=== PATIENT | female | born 1985 | race Native Hawaiian/Other Pacific Islander ===

== ENCOUNTER 2017-08-15 | Inpatient (IN) | payer BC, OTHER ==
[2017-08-15 01:10] VITALS: BMI 28.3
[2017-08-15] MEDS ORDERED: Penicillin G Potassium 5 MU in Sodium Chloride 0.9% 50 ML IVPB ONE (01:14)
[2017-08-15] MEDS ORDERED: Oxytocin 30 units/LR 500ML 30 U/500 ML BAG IV SCH (01:15)
[2017-08-15] MEDS ORDERED: Penicillin G 5 Million Unit Vial IVPB ONE (02:12)
[2017-08-15] MEDS: Lactated Ringer's 1,000 ML IV SCH ×4 (02:15→12:00)
[2017-08-15 02:27] VITALS: O2SAT 98
[2017-08-15 02:38] LABS: BASO # 0.1 K/uL (0.0-0.2); BASO % 0.7 % (0.0-2.0); EOS # 0.1 K/uL (0.0-0.7); EOS % 1.2 % (0.0-4.0); HEMOGLOBIN 11.9 g/dL (12.0-16.0); LYMPH # 1.6 K/uL (1.0-4.3); LYMPH % 22.1 % (20.0-40.0); MEAN CELL VOLUME 87.2 fl (81.0-99.0); MEAN CORPUSCULAR HEMOGLOBIN 29.7 pg (27.0-31.0); MEAN CORPUSCULAR HGB CONC 34.1 g/dL (33.0-37.0); MONO # 0.5 K/uL (0.0-0.8); MONO % 6.8 % (0.0-10.0); NEUT % 69.2 % (50.0-75.0); WHITE BLOOD COUNT 7.2 K/uL (4.8-10.8)
[2017-08-15] MEDS ORDERED: Oxytocin 30 units/LR 500ML 30 U/500 ML BAG IV ONE (06:47)
[2017-08-15] MEDS ORDERED: Oxytocin 30 units/LR 500ML 30 UNITS/500 ML BAG IV ONE (06:56)
--- NOTE | 2017-08-15 09:38 | OBPN ---
Datetime: 08/15/2017 09:29 IP Progress Impression: Normal progression of labor IP Informed Consent Obtain: Vaginal Delivery IP Procedures: Sterile Vag Exam IP Progress Plan: Continue present management Contraction Comments Provider: q 3-4 mins FHR - Baseline A Provider: 140 IP Progress Note Comment: Patient evaluated, comfortable using nitrous VE=3/60/-1 [id number] mod trey, +accels, no decels TOCO=q 3-4 mins A/P 1. Patient comfortable, continue Pitocin for augmentation, currently at 6 mu/min 2. CEFM and TOCO 3. Re-evaluate as needed, pt can have medicine for pain other than nitrous Vital Signs Provider: Reviewed; Within Normal Limits NICHD Accel Fetus A IP Provider: [id number] NICHD Variability Prov Fetus A: Moderate 6-25bpm Dilatation, Provider: 3 Effacement, Provider: 60 Station, Provider: -2 NICHD Decel Fetus A IP Provider: None Datetime: 08/15/2017 02:48 Pool Provider: Positive Nitrazine Provider: Positive Membranes, Provider: Ruptured Amniotic Fluid Color, Provider: Bloody FHR Category Provider Fetus A: Category I
[2017-08-15] MEDS ORDERED: Bupivacaine HCl 0.25% PF (10 ml) Inj ONE (12:22)
[2017-08-15] MEDS ORDERED: Fentanyl/Bupivacaine HCl 250 ML EPI ONE (12:22)
--- NOTE | 2017-08-15 23:30 | OBDS ---
DELIVERY PERSONNEL Delivery Doctor: Edvin Mcmahan MD Recycling Attendant: Claudette Rios RN Anesthesiologist: Tarsha Pérez MD MATERNAL INFORMATION Delivery Anesthesia: Epidural Medications in Delivery: pitocin and Pen G Provider Comments: of live male over intact perineum in JULIETA presentation, 6lbs 14 oz, 9/ 9, followed by shoulders and rest of infant, placed on mother's chest, mouth and nose suctione d, cord clamped and cut, cord blood obtained, placenta delivered spontaneously, fundus firm, ULP=841p L, vaginal abrasion repaired with 3-0 rapide LABOR SUMMARY EDC: 08/13/2017 00:00 No. Babies in Womb: 1 Attempted: No Labor Anesthesia: Epidural LABOR INFORMATION Reason for Induction: Not Applicable Oxytocin: Augmentation Group B Beta Strep: Positive Steroids Given: None Reason Steroids Not Administered: Not Applicable MEMBRANES Membranes Rupture Method: Spontaneous Rupture of Membranes: 08/14/2017 23:20 Length of Rupture (hrs): 17.67 Amniotic Fluid Color: blood tinge Amniotic Fluid Amount: Moderate Amniotic Fluid Odor: None BABY A INFORMATION Delivery Date/Time: 08/15/2017 17:00 Born in Route : No : N/A SHOULDER DYSTOCIA BABY A Infant Delivery Date/Time: 08/15/2017 17:00 INFORMATION BABY A Gestational Age at Delivery: 40.2 Gestational Status: Term IDENTIFICATION/MEDS BABY A ID Band Number: [id number]
[2017-08-15] MEDS ORDERED: Benzocaine/Menthol SPRAY TOP PRN (23:39)
[2017-08-15] MEDS ORDERED: Oxycodone/Acetaminophen 5/325 mg Tab PO PRN (23:39)
[2017-08-16 06:45] LABS: HEMOGLOBIN 9.9 g/dL (12.0-16.0); MEAN CELL VOLUME 88.3 fl (81.0-99.0); MEAN CORPUSCULAR HEMOGLOBIN 29.9 pg (27.0-31.0); MEAN CORPUSCULAR HGB CONC 33.9 g/dL (33.0-37.0); RBC 3.32 Mil/uL (3.80-5.20); RED CELL DISTRIBUTION WIDTH 15.2 % (11.5-14.5)
[2017-08-16] MEDS: Multivitamin With Minerals Tab PO SCH (09:06)
--- NOTE | 2017-08-16 23:45 | OBPPN ---
Datetime: 08/16/2017 23:43 PP Pain Prov: Within normal limits PP Nausea Prov: Denies PP Flatus Prov: Yes PP BM Prov: Yes PP Breasts Prov: Normal PP Heart Prov: Normal PP Lungs Prov: Normal PP Abdomen/Uterus Prov: Normal PP Lochia Prov: Normal PP Vulva/Perineum Prov: Normal PP CVA Tenderness Prov: Normal PP Extremities Prov: Normal PP Progress Prov: Normal PP Impression Prov: Normal progression PP Plan Prov: Continue present management PP Progress Note Prov: She feels fine. H/H 01/28 A; S/P day 1 ANEMIA- asymptomatic PLAN: anticiapte discharge in AM Vital Signs Provider PP: Reviewed; Within Normal Limits
[2017-08-17] MEDS: Multivitamin With Minerals Tab PO SCH (08:16)
[2017-08-17] MEDS ORDERED: Measles, Mumps, and Rubella 0.5 ML VIAL SC ONE (15:00)
[2017-08-18 02:02] VITALS: BP 108/66; PULSE 85; RESP 20; TEMP 98.3
== END 2017-08-17 21:30 | disposition home or self-care (01) | DRG 775 ==
LOC: H.EROB2 → H.L&D 01:11 → H.OB/GYN 08-16 01:20
PROVIDERS: ADMIT Obstetrics & Gynecology Gynecology; ATTEND Obstetrics & Gynecology Gynecology
PROC: 10E0XZZ Delivery of Products of Conception, External Approach (ICD-10-PCS; principal; 2017-08-15)
PROC: 0UQGXZZ Repair Vagina, External Approach (ICD-10-PCS; 2017-08-15)
PROC: 4A1HXCZ Monitoring of Products of Conception, Cardiac Rate, External Approach (ICD-10-PCS; 2017-08-15)
DX: O99.824 Streptococcus B carrier state complicating childbirth (principal); Z37.0 Single live birth; Z3A.40 40 weeks gestation of pregnancy; O71.4 Obstetric high vaginal laceration alone